=== PATIENT | male | born 1965 | race Asian ===

== ENCOUNTER 2022-05-01 05:50 | Day surgery (SDC) | payer MEDICAID ==
[~2022-05-01] VITALS: Ht 172.7 cm; Wt 74.8 kg
[2022-05-01] MEDS ORDERED: SIMETHICONE 40 MG/0.6 ML ML ONE (07:11)
[2022-05-01] MEDS ORDERED: MEPERIDINE 100 MG INJ. 100 MG/ML VIAL ONE (07:11)
[2022-05-01] MEDS ORDERED: MIDAZOLAM HCL 5 MG/5 ML VIAL ONE (07:12)
[2022-05-01 10:14] VITALS: BP_SYST 146
== END 2022-05-01 10:00 | disposition home or self-care (01) ==
LOC: SDS 05:50 → EDSEX 09:45 → SDS 10:00
PROVIDERS: ATTEND Internal Medicine Gastroenterology
DX: Z12.11 Encounter for screening for malignant neoplasm of colon (principal); D12.2 Benign neoplasm of ascending colon; D12.5 Benign neoplasm of sigmoid colon; D12.8 Benign neoplasm of rectum; Z80.0 Family history of malignant neoplasm of digestive organs; K64.8 Other hemorrhoids; Z20.822 Contact with and (suspected) exposure to COVID-19
CPT/HCPCS: 45380; 45385; 87426; 36415; 88305; 99152; 99153; G0378; J2250; J2175; 45384